=== PATIENT | male | born 2000 | race Caucasian/White ===

== ENCOUNTER 2024-09-13 12:49 | Emergency (ER) | payer BC, SELFPAY ==
[2024-09-13 13:09] VITALS: BP 136/79
[2024-09-13 13:26] LABS: % Basophils 0.1 % (0-2); % Eosinophils 2.2 % (0-6); % Immature Granulocytes 0.4 % (0-0.5); % Lymphocytes 11.2 % (20.5-51.1); % Monocytes 8.5 % (1.7-9.3); % Neutrophils 77.6 % (42.2-75.2); Absolute Eosinophils 0.3 10^3/uL (0-0.7); Absolute Immature Granulocytes 0.1 10^3/uL (0-0.05); Absolute Lymphocytes 1.5 10^3/uL (1.2-3.4); Absolute Monocytes 1.2 10^3/uL (0.1-0.6); Absolute Neutrophils 10.6 10^3/uL (1.4-6.5); Hematocrit 47.2 % (39.0-52.0); Hemoglobin 15.7 g/dL (13.0-18.0); Mean Corp Hgb Conc. 33.3 g/dL (33.0-37.0); Mean Corpuscular Hgb 29.1 pg (27.0-31.0); Mean Corpuscular Volume 87.6 fL (80.0-94.0); Nucleated Red Blood Cells % 0 % (-); Platelet Count 326 10^3/uL (130-400); Red Blood Cell Count 5.39 10^6/uL (4.70-6.10); Red Cell Dist. Width 12.5 % (11.5-14.5); White Blood Cell Count 13.7 10^3/uL (4.8-10.8)
[2024-09-13 13:39] LABS: ALT (SGPT) 43 U/L (0-50); AST (SGOT) 26 U/L (17-59); Albumin 5.2 g/dl (3.5-5.0); Alkaline Phosphatase 52 U/L (38-126); Blood Urea Nitrogen 12 mg/dl (9-20); Calcium 10.1 mg/dl (8.4-10.2); Carbon Dioxide 31 mmol/L (22-30); Chloride 97 mmol/L (98-107); Glucose 95 mg/dl (70-99); Potassium 4.3 mmol/L (3.5-5.1); Sodium 138 mmol/L (135-145); Total Bilirubin 1.4 mg/dl (0.2-1.3); Total Protein 8.2 g/dl (6.3-8.2); eGFR > 60.00
[2024-09-13 13:40] LABS: COVID-19 Antigen Negative (Negative)
[2024-09-13 14:02] LABS: Lipase 48 U/L (23-300)
[2024-09-13 15:12] VITALS: BP 138/85
[2024-09-13] MEDS: NSS 1000 IV (16:09)
[2024-09-13] MEDS: TORADOL 30 MG IV (16:10)
--- NOTE | 2024-09-13 16:20 | ED.GENMED ---
History of Present Illness
General
Chief Complaint: Abdominal Symptoms
Source: patient
Exam Limitations: none
Time Seen by Provider: 09/13/24 15:54
Nursing documentation reviewed up to this point in time: agreed with
History of Present Illness
History of Present Illness:
23-year-old male 2 weeks of left lower abdominal pain intermittent with nausea vomiting that she has some diarrhea that resolved no dysuria frequency no fever he feels weak and dizzy suffers from substance abuse and mental illness he is in a
facility, no sick contacts, no fevers no prior abdominal surgeries
Past History
Past History
ED Past Medical History: Psychiatric
ED Past Surgical History: None
Social History
Tobacco: Smoker
Alcohol: Occasional
Drug: Marijuana
Personal: Single
Living: other
Employment: Not employed
Review of Systems
Review of Systems
All Other Systems: Not applicable
Constitutional: Reports fatigue; Denies fever
EENT: Reports no symptoms
Respiratory: Reports no symptoms
Cardiac: Reports no symptoms
ABD/GI: Reports abdominal pain and nausea
: Reports no symptoms; Denies dysuria, flank pain or incontinence
Musculoskeletal: Reports no symptoms
Neurological: Reports dizzy and weakness
Hematologic/Lymphatic: Reports no symptoms
Psychiatric: Reports no symptoms
Phy Exam
Physical Exam
Physical Exam:
Physical Exam
General: no apparent distress, not acutely ill
Neck: Dry lips
Heart: s1/s2 regular rate and rhythm, no murmur. equal radial pulses.
Lungs: no acute respiratory distress. clear bilaterally
Abdomen: Soft tender in the left lower abdomen
Neuro: alert and oriented. no focal neurological deficits
Skin: no rash
Psychiatric: well kept. interactive and cooperative
Extremities: no edema.
Course
Orders/Labs/Results
Orders:
Orders
09/13/24 13:19
CMP [Comprehensive Metabolic Panel] Urgent
COVID-19 Antigen Urgent
Source: Nasal Swab
Complete Blood Count/With Diff Urgent
Lipase Urgent
INF RAPID [Influenza A+B Rapid Molecular] Urgent
DULCE Source: Nasal Swab
Specimen Description:
09/13/24 16:06
CT Abd/pelvis W Iv Cont Urgent
Comment:
Reason For Exam: llq pain
0.9% Sodium Chloride 1000 ml [Nss] 1,000 ml IV BOLUS
Ketorolac [Toradol] 30 mg IV NOW STA
09/13/24 16:07
Urinalysis Reflex To Culture Urgent
Abnormal Lab Results
09/13/24
13:19
WBC 13.7 H 10^3/uL
(4.8-10.8)
Abs Immat Gran (auto) 0.1 H 10^3/uL
(0-0.05)
Absolute Neuts (auto) 10.6 H 10^3/uL
(1.4-6.5)
Absolute Monos (auto) 1.2 H 10^3/uL
(0.1-0.6)
Neutrophils % 77.6 H %
(42.2-75.2)
Lymphocytes % 11.2 L %
(20.5-51.1)
Chloride 97 L mmol/L
(98-107)
Carbon Dioxide 31 H mmol/L
(22-30)
Total Bilirubin 1.4 H mg/dl
(0.2-1.3)
Albumin 5.2 H g/dl
(3.5-5.0)
09/13/24 13:19
09/13/24 13:19
Vital Signs
Initial and Last Documented VS:
Initial Vital Signs
Temp Pulse Resp BP Pulse Ox
99.2 F 114 18 136/79 93
09/13/24 13:09 09/13/24 13:09 09/13/24 13:09 09/13/24 13:09 09/13/24 13:09
Last Documented Vital Signs
Temp Pulse Resp BP Pulse Ox
99.2 F 110 20 138/85 94
09/13/24 13:09 09/13/24 15:12 09/13/24 15:12 09/13/24 15:12 09/13/24 15:12
MDM/Problems Addressed
Differential Diagnosis Includes:
Enteritis diverticulitis colitis UTI pyelonephritis renal stone ureteral stone
MDM/Problems Addressed:
Left lower abdominal
Chronic conditions affecting care: Psychiatric illness
Acute Exacerbation and/or Progression of Chronic Illness: Psychiatric illness
*Radiology
Radiology exam reviewed: radiology read reviewed
*Pulse Oximetry
Patient hypoxic: no
*Critical Care Note
Total Time (30-74mins, 75-104mins- exclusive of procedures): Not Applicable
ED Attending Note
-
Portions of this chart may have been created with voice recognition software.� Occasional wrong word or��sound alike� substitutions may have occurred due to the inherent limitations of voice recognition software.
Discharge Plan
Departure
Referrals:
SMITH RYAN NP [Family Provider] -
Interventions
Interventions:
*Risk Screen - Suicide Last Done: 09/13/24 13:09
*Neglect/Abuse Screening Last Done: 09/13/24 13:09
*ED COVID-19 Vaccine History Last Done: 09/13/24 13:09
Discharge Date and Time
Print Language: LATVIAN
[2024-09-13 18:00] VITALS: BP 132/85
[2024-09-13 20:00] VITALS: BP 127/63
[2024-09-13] MEDS: BENTYL 20 MG PO (20:09)
== END 2024-09-13 20:23 | disposition home or self-care (01) ==
LOC: EMR 12:49
PROVIDERS: Emergency Medicine; EMERGENCY PHYSICIAN Emergency Medicine
DX: R10.30 Lower abdominal pain, unspecified (principal); Z11.52 Encounter for screening for COVID-19; F17.200 Nicotine dependence, unspecified, uncomplicated
CPT/HCPCS: 99285; 96374; 96361; 74177; 80053; 83690; 85025; 87502; 87811; Q9967